=== PATIENT | female | born 1940 | race Hispanic/Latino ===

== ENCOUNTER → 2024-01-01 | Day surgery (SDC) | payer MEDICARE ==
[2023-12-31 09:23] LABS: BASOPHILS # (AUTO) 0.1 (0.0-0.1); BASOPHILS % 0.9 % (0.0-1.0); EOSINOPHILS # (AUTO) 0.3 (0.0-0.4); EOSINOPHILS % 3.6 % (0.0-6.0); HEMATOCRIT 34.5 % (34.2-44.1); LYMPHOCYTES % 28.4 % (18.0-39.1); MEAN CORPUSCULAR HEMOGLOBIN 29.3 pg (28-32); MEAN CORPUSCULAR HGB CONC 31.9 g/dL (31-35); MEAN CORPUSCULAR VOLUME 91.8 fL (81-99); MONOCYTES # (AUTO) 0.9 (0.2-0.8); MONOCYTES % 12.7 % (4.4-11.3); NEUTROPHILS # (AUTO) 3.8 (2.1-6.9); PLATELET COUNT 204 x10e3/uL (140-360); RED BLOOD COUNT 3.76 x10e6/uL (3.6-5.1); RED CELL DISTRIBUTION WIDTH 13.3 % (11.7-14.4)
[2023-12-31 10:03] LABS: ANION GAP 12.8 mmol/L (8-16); CALCIUM 9.5 mg/dL (8.4-10.2); CREATININE, SERUM 1.19 mg/dL (0.57-1.11); POTASSIUM 4.8 mmol/L (3.5-5.1)
[~2024-01-01] MED LIST: ASPIRIN EC81 MG PO; BALANCED SALT SOLN (OPTH) 15 ML BTL IO ONE; BUPIVACAINE HC 0.75% PF 10ML VIAL INJ ONE; CYCLOPENTOLATE HCL 2% OPTH SOLN 2 ML BTL OP ONE; EPINEPHRINE HCL 1:1000 1ML 1 MG/ML AMP ONE; GATIFLOXACIN(OPTH) 5 ML LIQD ONE; LIDOCAINE 2% /EPINEPHRINE 20 ML SDV INJ ONE; LIDOCAINE HCL 2% LOCAL INJ 5 ML SDV VIAL INJ ONE; LOSARTAN POTASS25 MG PO; NEOMYCIN/POLYMYXIN/DEX (OPTH) 3.5 GM TUBE ONE; PHENYLEPHRINE HCL 2 ML DROPS ONE; PILOCARPINE HCL(OPTH) 15 ML LIQD ONE; POVIDONE IODINE 5% (OPTH) 30 ML BTL ONE; PROPOFOL IV EMULSION 10 MG/ML 20 ML VIAL ONE; SENNA LAX8.6 MG PO
[2024-01-01] MEDS: LACTATED RINGER'S 1,000 ML ONE (06:38)
[2024-01-01 08:17] VITALS: BP 147/89; PULSE 74; RESP 17; O2SAT 98
== END | disposition home or self-care (01) ==
LOC: OR 05:51
PROVIDERS: ATTEND Ophthalmology
DX: H25.12 Age-related nuclear cataract, left eye (principal); I10 Essential (primary) hypertension; Z01.810 Encounter for preprocedural cardiovascular examination; Z01.812 Encounter for preprocedural laboratory examination; Z79.82 Long term (current) use of aspirin; Z79.899 Other long term (current) drug therapy; Z95.0 Presence of cardiac pacemaker
CPT/HCPCS: 36415; 66984; 80048; 85025; 93005; J0171; J2001 ×2; J2704; J7121; V2632

== ENCOUNTER 2024-12-03 05:38 | Observation (INO) | payer MEDICARE ==
[2024-11-30 12:24] LABS: BASOPHILS % 0.8 % (0.0-1.0); EOSINOPHILS % 1.6 % (0.0-6.0); LYMPHOCYTES % 33.0 % (18.0-39.1); MONOCYTES % 10.0 % (4.4-11.3); NEUTROPHILS % 54.3 % (38.7-80.0); RED CELL DISTRIBUTION WIDTH 14.5 % (11.7-14.4)
[2024-11-30 12:33] LABS: INR 1.01
[2024-11-30 12:40] LABS: CHOL/HDL RATIO 4.6 (3.0-3.6); EST GLOMERULAR FILTRATION RATE 47.0 ML/MIN (>=60); LDL CHOLESTEROL 115.0 MG/DL (60-130)
[~2024-12-03] VITALS: Ht 152.4 cm; Wt 57.2 kg
[~2024-12-03 05:38] MED LIST changes: -BALANCED SALT SOLN (OPTH) 15 ML BTL IO ONE; -BUPIVACAINE HC 0.75% PF 10ML VIAL INJ ONE; -CYCLOPENTOLATE HCL 2% OPTH SOLN 2 ML BTL OP ONE; -EPINEPHRINE HCL 1:1000 1ML 1 MG/ML AMP ONE; -GATIFLOXACIN(OPTH) 5 ML LIQD ONE; -LIDOCAINE 2% /EPINEPHRINE 20 ML SDV INJ ONE; -LIDOCAINE HCL 2% LOCAL INJ 5 ML SDV VIAL INJ ONE; -NEOMYCIN/POLYMYXIN/DEX (OPTH) 3.5 GM TUBE ONE; -PHENYLEPHRINE HCL 2 ML DROPS ONE; -PILOCARPINE HCL(OPTH) 15 ML LIQD ONE; -POVIDONE IODINE 5% (OPTH) 30 ML BTL ONE; -PROPOFOL IV EMULSION 10 MG/ML 20 ML VIAL ONE
[2024-12-03] MEDS ORDERED: ARICEPT5 MG PO (06:49)
[2024-12-03] MEDS ORDERED: NEURONTIN100 MG PO (06:49)
[2024-12-03] MEDS ORDERED: MELOXICAM7.5 MG PO (06:49)
[2024-12-03 06:56] VITALS: BP 169/71; PULSE 63; RESP 19; TEMP 98.9; O2SAT 100
[2024-12-03] MEDS ORDERED: LIDOCAINE HCL 2% LOCAL 20 ML VIAL ONE (06:58)
[2024-12-03] MEDS ORDERED: GENTAMICIN SULFATE 40 MG/ML 2 ML VIAL ONE (06:58)
[2024-12-03] MEDS ORDERED: IOPAMIDOL 610MG/1ML 300 MG/ML VIAL IV ONE (06:59)
[2024-12-03] MEDS ORDERED: SODIUM CHLORIDE 0.9% 1000ML 2,000 ML ONE (06:59)
[2024-12-03] MEDS ORDERED: SODIUM CHLORIDE 0.9% 500ML 500 ML ONE (06:59)
[2024-12-03] MEDS ORDERED: SODIUM BICARBONATE 8.4% SYRING 50 ML ONE (06:59)
[2024-12-03] MEDS ORDERED: Vancomycin IV 1 GM VIAL ONE (06:59)
[2024-12-03] MEDS: SODIUM CHLORIDE 0.9% 100 ML ONE (07:35)
[2024-12-03] MEDS ORDERED: SODIUM CHLORIDE FLUSH 10 ML SYR INJ PRN (12:30)
[2024-12-03] MEDS ORDERED: FENTANYL CITRATE/PF 100MCG/2 ML INJ ONE (17:29)
[2024-12-03] MEDS ORDERED: MIDAZOLAM HCL 2 MG/2 ML VIAL ONE (17:29)
[2024-12-03 20:55] VITALS: BP 136/69; PULSE 63; RESP 16; TEMP 98.4; O2SAT 100
[2024-12-03 21:12] VITALS: BP 136/69; PULSE 63; RESP 16; TEMP 98.4; O2SAT 100
[2024-12-04] VITALS (8 sets, daily range): BP systolic 100–149; BP diastolic 66–90; PULSE 61–75; RESP 13–18; TEMP 98–98.8; O2SAT 94–99
[2024-12-04] MEDS ORDERED: DEXTROSE 50% SYRINGE 50 ML IV PRN (01:00)
[2024-12-04] MEDS ORDERED: ALBUTEROL/IPRATROPIUM 3 ML NEB NEB PRN (01:00)
[2024-12-04] MEDS ORDERED: MELATONIN 5 MG TABLET PO PRN (01:00)
[2024-12-04] MEDS ORDERED: POTASSIUM CHLORIDE 20 MEQ TAB CR PO PRN (01:00)
[2024-12-04] MEDS ORDERED: ONDANSETRON HCL INJ 2MG/ML 2ML 2 MG/ML VIAL IV PRN (01:00)
[2024-12-04] MEDS ORDERED: BENZONATATE 100 MG CAP PO PRN (01:00)
[2024-12-04] MEDS ORDERED: LIDOCAINE 4% PATCH TP PRN (01:00)
[2024-12-04] MEDS ORDERED: DIPHENHYDRAMINE HCL 25 MG CAP PO PRN (01:00)
[2024-12-04] MEDS ORDERED: HYDRALAZINE HCL 20 MG/ML VIAL IV PRN (01:00)
[2024-12-04] MEDS ORDERED: SIMETHICONE 80 MG CHEW PO PRN (01:00)
[2024-12-04] MEDS ORDERED: Morphine 2mg Syringe 2 MG/ML SYR IV PRN (01:00)
[2024-12-04] MEDS: ACETAMINOPHEN 325 MG TAB PO PRN (05:37)
[2024-12-04 06:33] LABS: BASOPHILS % 0.7 % (0.0-1.0); EOSINOPHILS % 2.3 % (0.0-6.0); LYMPHOCYTES % 29.9 % (18.0-39.1); MONOCYTES % 13.4 % (4.4-11.3); NEUTROPHILS % 53.4 % (38.7-80.0); RED CELL DISTRIBUTION WIDTH 14.3 % (11.7-14.4)
[2024-12-04 06:51] LABS: EST GLOMERULAR FILTRATION RATE 56.0 ML/MIN (>=60)
[2024-12-04] MEDS: LOSARTAN POTASSIUM 25 MG TAB PO SCH (09:31)
[2024-12-04] MEDS: DOCUSATE SODIUM 100 MG CAP PO PRN (09:31)
[2024-12-04] MEDS: PANTOPRAZOLE SOD 40 MG TABEC PO SCH (09:31)
[2024-12-04] MEDS ORDERED: MINOCYCLINE HCL50 MG PO (14:26)
[2024-12-04] MEDS ORDERED: ENOXAPARIN SOD INJ 40 MG/0.4 ML SYR SC SCH (17:00)
[2024-12-04] MEDS ORDERED: DONEPEZIL HCL 5 MG TAB PO SCH (21:00)
== END 2024-12-04 14:00 | disposition home or self-care (01) ==
LOC: CATH LAB 05:38 → INTOOBSV 19:58 → IMCU 19:58
PROVIDERS: ADMIT Internal Medicine Clinical Cardiac Electrophysiology; ATTEND Internal Medicine Clinical Cardiac Electrophysiology
DX: Z45.010 Encounter for checking and testing of cardiac pacemaker pulse generator [battery] (principal); I49.5 Sick sinus syndrome; T82.110A Breakdown (mechanical) of cardiac electrode, initial encounter; I10 Essential (primary) hypertension; F03.90 Unspecified dementia, unspecified severity, without behavioral disturbance, psychotic disturbance, mood disturbance, and anxiety
CPT/HCPCS: 33207; 33225; 36415 ×2; 71045; 71046; 75820; 80048 ×2; 80061; 85025 ×2; 85610; 85730; 93005; 94799; 99252; C1769; C1785; C1898; G0378 ×2; J0690; J1580; J2003; J2250; J2470; J3010; J3373; J7030; J7040; J7050; Q9967; 33216; 33228; 99152; 99153